=== PATIENT | female | born 1995 | race Caucasian/White ===

== ENCOUNTER 2017-01-14 04:07 | Outpatient (CLI) | payer MEDICAID ==
[~2017-01-14] VITALS: Ht 167.6 cm; Wt 98.5 kg
[2017-01-14] MEDS ORDERED: FERR325C PO (04:27)
[2017-01-14] MEDS ORDERED: CALC600T5 PO (04:27)
[2017-01-14] MEDS ORDERED: PREN1TAB79 PO (04:27)
[2017-01-14 04:29] VITALS: Ht 167.6 cm; Wt 98.5 kg
[2017-01-14 04:30] VITALS: BP 131/71
--- NOTE | 2017-01-14 06:51 | HP ---
Date/Time of Note Date/Time of Note DATE: 01/14/17 TIME: 06:48 OB - History Hx of Present Free Text/Dictation OB Triage Pt is a 21yo at 36+2wks GA presenting with c/o lower abdominal pain since 0300 and possible LOF 2/2 feeling an area of wetness in her underwear at 2200. Pt reports normal FM, denies VB. Care: Good Care Obstetrical Complications: None Medical Complications: None OB Admission Exam Vital Signs Vital Signs Vital Signs Date Time Temp Pulse Resp B/P Pulse Ox O2 Delivery O2 Flow Rate FiO2 01/14/17 04:30 97.4 102 20 131/71 Room Air BP 124/69 Physical Exam Cervical Dilatation: None Effacement: 0% Station: -3 Membranes: Intact (pooling and nitrazine negative, normal whitish mucus noted) Heart Rate: 130's Accelerations: Accelerations Present Decelerations: No Decelerations Varibility: Moderate Contractions on Admission: >10 Minutes Apart (q20 min UCs) OB Assessment/Plan Other Assessment: contractions without evidence of PTL Physiologic vaginal discharge without evidence of PPROM Other plan: Pt appropriate for d/c home PTL, PPROM and [facility] precautions reviewed Pt to f/up as scheduled on 01/18/17 with HATTIE Velarde MD Jan 14, 2017 06:51
--- NOTE | 2017-01-14 07:39 | TRIAGE ---
OB Triage Datetime Report Generated by CPN: 01/14/2017 07:39 Datetime: 01/14/2017 06:59 Stage of : OB Triage Labor Evaluation Frequency: Occasional Monitor Mode: External Duration (sec)2399: 40-90 Quality: Mild Pattern: Normal: <= 5 Contractions in 10 Minutes Resting Tone [place]: Relaxed Heart Rate FHR Baseline Rate: 135 Monitor Mode: External US FHR Baseline Changes: No Baseline Change Variability: Moderate 6-25 bpm Accelerations: 15X15 Decelerations: None Category: Category I Datetime: 01/14/2017 06:35 Vaginal Exam Dilatation (cms): 0.0 Effacement (%): 50 Station: -3 Exam By: KATHRINE Parra Vaginal Bleeding: None Cervix, Consistency: Moderate Cervix, Position: Posterior Datetime: 01/14/2017 06:34 Membrane Status: Intact Pool: Negative Nitrazine: Negative Datetime: 01/14/2017 06:00 Stage of : OB Triage Labor Evaluation Frequency: Occasional Monitor Mode: External Duration (sec)2399: 40-80 Quality: Mild Pattern: Normal: <= 5 Contractions in 10 Minutes Resting Tone [place]: Relaxed Heart Rate FHR Baseline Rate: 135 Monitor Mode: External US Variability: Moderate 6-25 bpm Accelerations: 15X15 Decelerations: None Category: Category I Datetime: 01/14/2017 05:23 Stage of : OB Triage Datetime: 01/14/2017 05:00 Stage of : OB Triage Labor Evaluation Frequency: Occasional Monitor Mode: External Duration (sec)2399: 40-90 Quality: Mild Pattern: Normal: <= 5 Contractions in 10 Minutes Resting Tone [place]: Relaxed Heart Rate FHR Baseline Rate: 130 Monitor Mode: External US Variability: Moderate 6-25 bpm Accelerations: 15X15 Decelerations: None Category: Category I Datetime: 01/14/2017 04:20 EGA: 36.2 Datetime: 01/14/2017 04:19 Time of Arrival: 01/14/2017 04:04 Arrived By: Wheelchair Arrived From: Home Chief Complaint: UCs, "feeling wet 1 time @2200" Movement: Present Contractions: Regular Time Contractions Began: 01/14/2017 01:15 Contractions: q2-4mins Rupture of Membranes: Unsure Vaginal Bleeding: None Vaginal Discharge: Present Recent Sexual Intercouse: Denies Abdominal Trauma: Not Applicable Patient Complaints: Contractions; Cramping; Nausea Time Provider Notified: 01/14/2017 05:47 Provider Notified: Initial Plan: EFM x2, VE Datetime: 01/14/2017 04:18 Stage of : OB Triage Assessment Type: Triage Maternal Assessment Level of Consciousness: Fully Conscious DTR's/Clonus: DTRs 2+; No Clonus Headache: Denies Blurred Vision: No Respiratory Effort: Unlabored; Regular Rhythm; Equal Expansion Breath Sounds, Left: Clear and Equal Breath Sounds, Right: Clear and Equal Nausea/Vomiting: Present (Annotations: Mild nausea only) RUQ Epigastric Pain: Denies Lower Extremities Edema: None Degree: None Upper Extremities Edema: None Degree: None Facial Edema: None Temperature Route: Oral Fall Risk Assessment History of Falling: (0) No Secondary Diagnosis: (0) No Ambulatory Aid: (0) Bedrest/Nurse Assist IV Therapy: (0) No Gait: (0) Normal/Bedrest/Immobile Mental Status: (0) Oriented to Own Ability Fall Score: 0 Fall Risk Score Definition: No Risk: No action required Datetime: 01/14/2017 04:13 Stage of : OB Triage Monitor Mode: External Contraction Comments: [place] applied Heart Rate FHR Baseline Rate: 135 Monitor Mode: External US Comments: EFM applied
== END 2017-01-14 07:09 | disposition home or self-care (01) ==
LOC: OBT 04:07 → L-D 04:09 → OBT 07:09
PROVIDERS: ATTEND Obstetrics & Gynecology
DX: O60.03 Preterm labor without delivery, third trimester (principal); Z3A.36 36 weeks gestation of pregnancy
CPT/HCPCS: G0463